=== PATIENT | female | born 1965 | race African-American/Black ===

== ENCOUNTER 2021-12-23 17:45 | Emergency (ER) | payer OTHER ==
[2021-12-23 18:28] LABS: Hemoglobin 12.8 g/dL (12.0-15.5); Mean Corpuscular HGB CONC 32.7 g/dL (32.0-36.0); Mean Corpuscular Hemoglobin 29.6 pg (27.0-33.0); Mean Corpuscular Volume 90.7 fl (81.6-98.3); Mean Platelet Volume 11.4 fl (7.4-10.4); Platelet Count 216 10x3/uL (150-450); Red Blood Cell (RBC) Count 4.32 10x6/uL (3.90-5.03); White Blood Cell (WBC) Count 10.8 10x3/uL (3.5-10.5)
[2021-12-23 18:42] LABS: ALT (SGPT) 21 U/L (8-55); AST (SGOT) 20 U/L (5-34); Albumin 4.7 g/dL (3.5-5.0); Alkaline Phosphatase 55 U/L (40-110); Anion Gap 16 mmol/L (10-20); BUN (Urea Nitrogen) 10 mg/dL (9.8-20.1); Bilirubin, Total 0.3 mg/dL (0.2-1.2); Calc. Creatinine Clearance 0 mL/min (70-130); Carbon Dioxide 29 mmol/L (22-29); Chloride 101 mmol/L (98-107); Glucose 94 mg/dL (70-105); Lipase 22 U/L (8-78); Potassium 3.9 mmol/L (3.5-5.1); Protein, Total 7.7 g/dL (6.0-8.3); Sodium 142 mmol/L (136-145)
[2021-12-23 19:00] LABS: SARS-CoV-2 NAA Rapid Test Not Detected (NotDetected)
[2021-12-23 19:07] LABS: Band 3 % (5-11); Eosinophils 2 % (0-10); Lymphocytes 32 % (21-51); Monocytes 8 % (0-10); Reactive Lymphocytes 18 % (0-10)
[2021-12-23 19:08] LABS: Large Platelets SLIGHT; Neutrophil 34 % (42-75); Platelet Morphology Comment Appears Adequate
[2021-12-23 19:09] LABS: Platelet Clumps MODERATE
[2021-12-23 19:10] LABS: MDiff Complete? YES
[2021-12-23 19:11] LABS: RBC Morphology Normal
== END 2021-12-23 22:05 | disposition home or self-care (01) ==
LOC: CSHERS 17:45
DX: I10 Essential (primary) hypertension (principal); R06.02 Shortness of breath; R07.9 Chest pain, unspecified; Z20.822 Contact with and (suspected) exposure to COVID-19; G43.909 Migraine, unspecified, not intractable, without status migrainosus; E11.9 Type 2 diabetes mellitus without complications; E78.5 Hyperlipidemia, unspecified; Z87.891 Personal history of nicotine dependence
CPT/HCPCS: 36415; 71045; 80053; 83690; 83880; 84484; 85025; 93005; 94760

== ENCOUNTER 2023-03-29 13:12 | Day surgery (SDC) | payer OTHER | END 2023-03-29 15:45 | disposition home or self-care (01) | LOC: CSHRAD 13:12 | PROVIDERS: ATTEND Specialist | DX: M51.16 Intervertebral disc disorders with radiculopathy, lumbar region (principal); M48.062 Spinal stenosis, lumbar region with neurogenic claudication; M47.26 Other spondylosis with radiculopathy, lumbar region; Z88.0 Allergy status to penicillin; Z88.8 Allergy status to other drugs, medicaments and biological substances; Z79.899 Other long term (current) drug therapy | CPT/HCPCS: 62305; 72129; 72132 ==

== ENCOUNTER 2024-06-21 14:30 | Outpatient (CLI) | payer OTHER | END 2024-06-21 14:31 | disposition home or self-care (01) | LOC: CSHRAD 14:30 | PROVIDERS: ATTEND Nurse Practitioner Family | DX: M79.672 Pain in left foot (principal); M25.472 Effusion, left ankle; M19.072 Primary osteoarthritis, left ankle and foot ==

== ENCOUNTER 2024-07-28 11:09 | Outpatient (CLI) | payer OTHER | END 2024-07-28 11:10 | disposition home or self-care (01) | LOC: CSHMAMMO 11:09 | PROVIDERS: ATTEND Nurse Practitioner Family | DX: Z12.31 Encounter for screening mammogram for malignant neoplasm of breast (principal) | CPT/HCPCS: 77063; 77067 ==